=== PATIENT | female | born 2005 | race Hispanic/Latino ===

== ENCOUNTER 2025-01-21 17:49 | Emergency (ER) | payer OTHER, SELFPAY ==
--- OUTSIDE RECORDS SUMMARY | 2025-01-21 17:52 | XMS REPORT | Continuity of Care Document ---
Author Name Unknown Address [address] [place] [address]. [address] [place] [address] Organization [facility] [place] Address [address] [facility]. [address] [place] [address] Care Team Providers Care Shroud Line Tier Name Role Phone MONALISA PAZ Primary Care Physician OTILIA Hicks Attending Clinician Unav ailOTILIA Cornelius Attending Clinician Unav Otilia Padilla MD Attending Clinician + MONALISA PAZ Attending Clinician Unavailable Monalisa Downing Attending Clinician [phone] Payers Payer Name Policy Type Policy Number Effective Date Expirati on Date Source [facility] ([facility]) [id number] 2024 00:00:00 Allergies, Adverse Reactions, Alerts Allergy Name Allergy Type Status Severity Reaction(s) Onset Date Inactive Date Treating Clinician Comments Source NO KNOWN ALLERGIE S Drug Class Active [facility] Social History Social Habit Start Date Stop Date Quantity Comments Source [facility] Alcoholic beverage intake 2024-05-22 00:00:00 2024-05-22 00:00:00 Current drinker of alcohol (finding) [facility] History of Social function 2024-05-22 00:00:00 2024-05-22 00:00:00 [facility] Alcohol Comment 2024-05-22 00:00:00 2024-05-22 00:00:00 every few weeks [facility] Tobacco use and exposure 2024-05-22 00:00:00 2024-05-22 00:00:00 Smokeless tobacco non-user [facility] Sex assigned at 2005 00:00:00 2005 00:00:00 [facility] Smoking Status Start Date Stop Date Source Never smoked tobacco General acute hospital Medications Ordered Medication Name Filled Medication Name Start Date Stop Date Current Medication? Ordering Clinician Indication Dosage Frequency Signature (SIG) Comments Components Source cefTRIAXone (ROCEPHIN) 1,000 mg in water for injection, sterile 10 mL IV Push 11-15 19:45: 00 11-15 19:50 :00 No 1000mg 1,000 mg, Intravenou s, ONCE, 1 dose, On 11/15/24 at 1345, 10 mL, Reason for Anti-Infec tive: Documented Infection, Documented Infection Site: Urine, Duration of Therapy: Once (ED) General acute hospital NaCl 0.9% (NS) bolus infusion 500 mL 11-15 19:45: 00 11-15 20:48 :00 No 500mL at 999 mL/hr, 500 mL, IV Infusion, ONCE, 1 dose, On 11/15/24 at 1345, STAT General acute hospital cefdinir 300 mg capsule 11-15 00:00: 00 11-26 05:59 :00 Yes [id number] 300mg Take 1 capsule by mouth every 12 (twelve) hours for 10 days. General acute hospital loperamide (IMODIUM A-D) 2 mg capsule 11-15 00:00: 00 11-19 05:59 :00 Yes [id number] 2mg Take 1 capsule by mouth every 6 (six) hours as needed for Diarrhea for up to 3 days. General acute hospital Immunizations Ordered Immunization Name Filled Immunization Name Date Status Comments Source Meningococcal Polysaccharide (Groups A, C, Y And W-135 TT) conjugate vaccine 2024-05-22 00:00:00 Completed Meningococcal Polysaccharide (Groups A, C, Y And W-135 TT) conjugate vaccine Unknown Completed [facility] Vital Signs Vital Name Observation Time Observation Value Comments S ource Systolic blood pressure 2024-11-15 18:21:00 126 mm[Hg] [facility] Diastolic blood pressure 2024-11-15 18:21:00 84 mm[Hg] [facility] Heart rate 2024-11-15 18:21:00 84 /min [facility] Body temperature 2024-11-15 18:21:00 37.22 Clarice [facility] Respiratory rate 2024-11-15 18:21:00 16 /min [facility] Body height 2024-11-15 18:21:00 160 cm [facility] Body weight 2024-11-15 18:21:00 46.267 kg [facility] BMI 2024-11-15 18:21:00 18.07 kg/m2 [facility] Oxygen saturation in Arterial blood by Pulse oximetry 2024-11-15 18:21:00 100 /min [facility] Systolic blood pressure 2024-05-22 17:40:00 112 mm[Hg] [facility] Diastolic blood pressure 2024-05-22 17:40:00 66 mm[Hg] [facility] Heart rate 2024-05-22 17:40:00 52 /min [facility] Body temperature 2024-05-22 17:40:00 36.61 Clarice [facility] Body height 2024-05-22 17:40:00 157.5 cm [facility] Body weight 2024-05-22 17:40:00 49.442 kg [facility] BMI 2024-05-22 17:40:00 19.94 kg/m2 [facility] Body mass index (BMI) [Percentile] Per age and sex 2024-05-22 17:40:00 28.88 % [facility] Procedures Procedure Date / Time Performed Performing Clinician Source POCT TEST 2024-11-15 18:52:00 Otilia Kuo [facility] LIPASE 2024-11-15 18:49:00 Otilia Guevara [facility] COMP. METABOLIC PANEL (37590) 2024-11-15 18:49:00 Otilia Guevara [facility] CBC WITH DIFF 2024-11-15 18:49:00 Otilia Guevara [facility] URINALYSIS 2024-11-15 18:49:00 Otilia Guevara [facility] INFLUENZA A/B RSV COVID NAAT 2024-11-15 18:49:00 Otilia Guevara [facility] MENQUADFI MENINGOCOCCAL CONJUGATE VACCINE SEROGROUPS A,C,Y,W 2024-05-22 17:49:40 Monalisa Paz [facility] Encounters Start Date/Time End Date/Time Encounter Type Admission Type Attending [facility] Care Facility Care Department Encounter ID Source 2024-11-15 12:22:00 2024-11-15 14:51:00 Emergency X OTILIA GUEVARA ERIN COHEIDI ERT [id number] General acute hospital 2024-11-15 12:22:00 2024-11-15 14:51:00 Emergency Otilia Guevara [facility] [id number] General acute hospital 2024-05-22 12:30:00 2024-05-22 13:05:24 Outpatient R MONALISA PAZ [facility] [id number] General acute hospital 2024-05-22 12:30:00 2024-05-22 13:05:24 Office Visit Monalisa Paz [facility] [id number] General acute hospital Results Test Description Test Time Test Comments Results Result Co mments Source [facility] 19:24:39* Test Item Value Reference Range Interpretation Comme nts LIPASE (test code = 8230530492) 80 U/L 0-220 Lab Interpretation (test cod e = 61739-0) [id number] 19:03:17* Test Item Value Reference Range Interpretation Comme nts WBC (test code = 6690-2) 8.78 4.30-11.10 RBC (test code = 789-8) 4.38 3.93-5.25 HGB (test code = 718-7) 13.6 g/dL 11.6-15.0 HCT (test code = 4544-3) 38.9 % 35.7-45.2 MCV (test code = 787-2) 88.8 fL 80.6-95.5 MCH (test code = 785-6) 31.1 pg 25.9-32.8 MCHC (test code = 786-4) 35.0 g/dL 31.6-35.1 RDW-SD (test code = 89393-2) 37.0 fL 39.0-49.9 L RDW-CV (test code = 788-0) 11.6 % 12.0-15.5 L PLT (test code = 777-3) 208 166-358 MPV (test code = 63746-9) 12.0 fL 9.5-12.9 NRBC/100 WBC (test code = 3532830728) 0.0 0.0-10.0 NRBC x10^3 (test code = 7684957009) See_Comment [Automated messa ge] The system which generated this result transmitted reference range: 10*3/?L. The reference range was not used to interpret this result as normal/abnormal. GRAN MAT (NEUT) % (test code = 770-8) 69.9 % IMM GRAN % (test code = 8194026756) 0.20 % LYMPH % (test code = 736-9) 16.6 % MONO % (test code = 5905-5) 11.5 % EOS % (test code = 713-8) 1.5 % BASO % (test code = 706-2) 0.3 % GRAN MAT x10^3(ANC) (test code = 9740944949) 6.13 10*3/uL 1.88-7.09 IMM GRAN x10^3 (test code = 4563531305) 0.00-0.06 LYMPH x10^3 (test code = 731-0) 1.46 10*3/uL 1.32-3.29 MONO x10^3 (test code = 742-7) 1.01 10*3/uL 0.33-0.92 H EOS x10^3 (test code = 711-2) 0.13 10*3/uL 0.03-0.39 BASO x10^3 (test code = 704-7) 0.03 10*3/uL 0.01-0.07 Lab Interpretation (test code = 22092-6) Abnormal [id number] 18:52:00* Test Item Value Reference Range Interpretation Comme nts POCT PREG (test code = 1605) Negative On board controls acceptable with C Line (test code = 3574) No POCT PREG LOT # (test code = 3575) [id number] POCT PREG TEST DATE ( test code = 3576) [id number] Lab Interpretation (test cod e = 85136-9) Normal [facility] Notes Date/Time Note Provider Source 2024-11-15 14:50:15 Pt given printed and verbal discharge instructions regarding abdominal pain, acute cystitis with hematuria, diarrhea, encouraged hydration, 2 Prescriptions sent. Discussed antibiotic therapy and to take until all completed unless adverse reaction occurs - if occurs, discontinue medication and follow up with pcp/seek medical attention Pt verbalized understanding of instructions, pt awake alert oriented, resp reg unlabored, skin w/d, color appropriate for race, moves all ext well,pt encouraged to follow up with pcp. Advised to seek medical attention for new/prolonged/worsening of symptoms, Symptoms improved. No adverse reaction to meds given in ER noted upon discharge PIV d'cd, dressing to site, catheter in tact. Awake, alert oriented, resp reg unlabored, skin w/d, pt leaving amb with steady gait, in no apparent distress, N Santacruz RN [facility] 2024-11-15 12:20:32 CC: patient presents to the ER with complaints of diarrhea and foul smelling belches for the past 4 days. Awake, alert, oriented, resp reg unlabored, skin warm and dry, color appropriate for race, moves all ext without difficulty, amb without assistance Appears in no distress. N Zeng RN [facility] - [facility] 2024-11-15 12:06:00 [facility] Emergency Department Note Patient Name: Danitza Sims Date of : 2005 19 year old female Treatment Room: Room/bed info not found Primary Care Physician: Monalisa Paz Patient Escorted by: Family [5] Mode of Arrival: Personal means [1] EMS Treatment Prior to ED Arrival: Travel and Exposure Screening: Symptoms Does patient have any of these symptoms?: (not recorded) Exposure Screening Has patient had contact with someone with a communicable disease in the last month?: (not recorded) Diseases exposed to:: (not recorded) Is Patient ?: (not recorded) Exposure Date: (not recorded) Chief Complaint: Chief Complaint Patient presents with Diarrhea History of Present Illness: HPI Danitza Sims is a 19 year old female presenting with diarrhea for the past 4 days along with malaise. Patient reports very mild abdominal cramping. Patient reports having to used that bathroom about once every hour. Patient denies associated nausea or vomiting. Patient denies fevers, no known sick contacts. No cough, congestion or rhinorrhea. Past Medical History/Immunizations: No past medical history on file. Allergies: No Known Allergies Past Social History: Tobacco Use Never smoked or used smokeless tobacco. Alcohol Use Yes. Comments: every few weeks Drug Use Not Currently; Marijuana. Sexual Activity Not currently sexually active; Control/Protection: Condom. Past Surgical History: No past surgical history on file. Review of Systems: Review of Systems Constitutional: Positive for fatigue. Negative for activity change, appetite change, chills, diaphoresis, fever and unexpected weight change. HENT: Negative for congestion, facial swelling and rhinorrhea. Eyes: Negative for photophobia and visual disturbance. Respiratory: Negative for apnea, cough, choking, chest tightness, shortness of breath, wheezing and stridor. Cardiovascular: Negative for chest pain, palpitations and leg swelling. Gastrointestinal: Positive for diarrhea. Negative for abdominal distention, abdominal pain, anal bleeding, blood in stool, constipation, nausea, rectal pain and vomiting. Genitourinary: Positive for dysuria. Neurological: Positive for light-headedness. Negative for dizziness, tremors, seizures, syncope, facial asymmetry, speech difficulty, weakness, numbness and headaches. Physical Exam: ED Triage Vitals [11/15/24 1221] Weight 46.3 kg (102 lb) Actual or estimated Estimated by patient/family report Height 1.6 m (5' 3") BP 126/84 Pulse 84 Resp 16 Temp 37.2 ?C (99 ?F) Temp source Oral SpO2 100 % Measured on Room air Physical Exam Vitals and nursing note reviewed. Constitutional: General: She is not in acute distress. Appearance: She is well-developed. She is not diaphoretic. HENT: Head: Normocephalic and atraumatic. Eyes: General: No scleral icterus. Right eye: No discharge. Left eye: No discharge. Conjunctiva/sclera: Conjunctivae normal. Cardiovascular: Rate and Rhythm: Normal rate and regular rhythm. Heart sounds: Normal heart sounds. No murmur heard. No friction rub. No gallop. Pulmonary: Effort: Pulmonary effort is normal. No respiratory distress. Breath sounds: Normal breath sounds. No wheezing. Chest: Chest wall: No tenderness. Abdominal: General: There is no distension. Palpations: Abdomen is soft. There is no mass. Tenderness: There is no abdominal tenderness. There is no guarding or rebound. Musculoskeletal: Cervical back: Neck supple. Skin: General: Skin is warm and dry. Neurological: Mental Status: She is alert and oriented to person, place, and time. Cranial Nerves: No cranial nerve deficit. Coordination: Coordination normal. Psychiatric: Behavior: Behavior normal. Radiology: No orders to display Lab Results: Lab Results CBC WITH DIFF - Abnormal Result Value Ref Range WBC 8.78 4.30 - 11.10 10*3/?L RBC 4.38 3.93 - 5.25 10*6/?L HGB 13.6 11.6 - 15.0 g/dL HCT 38.9 35.7 - 45.2 % MCV 88.8 80.6 - 95.5 fL MCH 31.1 25.9 - 32.8 pg MCHC 35.0 31.6 - 35.1 g/dL RDW-SD 37.0 (*) 39.0 - 49.9 fL RDW-CV 11.6 (*) 12.0 - 15.5 % PLT 208 166 - 358 10*3/?L MPV 12.0 9.5 - 12.9 fL NRBC/100 WBC 0.0 0.0 - 10.0 /100 WBCs NRBC x10 3 <0.01 10*3/?L GRAN MAT (NEUT) % 69.9 % IMM GRAN % 0.20 % LYMPH % 16.6 % MONO % 11.5 % EOS % 1.5 % BASO % 0.3 % GRAN MAT x10 3 (ANC) 6.13 1.88 - 7.09 10*3/uL IMM GRAN x10 3 <0.03 0.00 - 0.06 10*3/uL LYMPH x10 3 1.46 1.32 - 3.29 10*3/uL MONO x10 3 1.01 (*) 0.33 - 0.92 10*3/uL EOS x10 3 0.13 0.03 - 0.39 10*3/uL BASO x10 3 0.03 0.01 - 0.07 10*3/uL COMP. METABOLIC PANEL (11283) - Abnormal NA 140 135 - 145 mmol/L K 4.0 3.5 - 5.0 mmol/L CL 107 98 - 108 mmol/L CO2 TOTAL 22 (*) 23 - 31 mmol/L AGAP 11 2 - 16 BUN 16 7 - 23 mg/dL GLUCOSE 99 70 - 110 mg/dL CREATININE 0.76 0.50 - 1.04 mg/dL TOTAL BILI 0.7 0.1 - 1.1 mg/dL CALCIUM 10.0 8.6 - 10.6 mg/dL T PROTEIN 8.6 (*) 6.3 - 8.2 g/dL ALBUMIN 5.2 (*) 3.5 - 5.0 g/dL ALK PHOS 60 34 - 122 U/L ALTv 101 (*) 5 - 35 U/L AST(SGOT) 107 (*) 13 - 40 U/L eGFR 115.9 mL/min/1.73m2 URINALYSIS - Abnormal APPEARANCE Slightly Cloudy (*) Clear COLOR Yellow Yellow PH 5.0 4.8 - 8.0 SP GRAVITY 1.021 1.003 - 1.030 GLU U QUAL Normal Normal BLOOD 1+ (*) Negative KETONES Negative Negative PROTEIN Negative Negative UROBILIN Normal Normal BILIRUBIN Negative Negative NITRITE Negative Negative LEUK MAGALIE 75/uL (*) Negative RBC/HPF 25 (*) 0 - 3 HPF WBC/HPF 22 (*) 0 - 5 HPF BACTERIA Few (*) Negative MUCOUS Moderate (*) Negative LPF SQ EPITH 1 HPF LIPASE - Normal LIPASE 80 0 - 220 U/L POCT TEST - Normal POCT PREG Negative On board controls acceptable with C Line No POCT PREG LOT # [id number] POCT PREG TEST DATE 121,620,252 INFLUENZA A/B RSV COVID NAAT - Normal Influenza A NAAT Negative Negative Influenza B NAAT Negative Negative RSV by PCR Negative Negative SARS-CoV-2 NAAT Negative Negative URINE CULTURE EKG: If EKG completed, see Procedure Note. Orders and Treatments: Orders Placed This Encounter Procedures Cbc with Diff Comp. Metabolic Panel (46885) Lipase Urinalysis POCT TEST Influenza A B RSV COVID NAAT Orders Placed This Encounter Medications NaCl 0.9% (NS) bolus infusion 500 mL cefTRIAXone (ROCEPHIN) 1,000 mg in water for injection, sterile 10 mL IV Push First Provider Eval: ED Events Date/Time Event User Comments 11/15/24 1210 Medical Screening Begins OTILIA GUEVARA MD -- 11/15/24 1210 First Provider Evaluation OTILIA GUEVARA MD -- ED COURSE Diagnosis/Impression as of 11/15/24 1359 Abdominal pain, unspecified abdominal location Acute cystitis with hematuria Diarrhea, unspecified type Procedures: Procedures MDM: Medical Decision Making Danitza Sims is a 19 year old female presenting with diarrhea symptoms as above. Patient's labs reviewed, remarkable for UTI. Patient's viral studies negative of COVID19, influenza A/B, RSV. Patient's CMP, CBC, unremarkable. Patient received IV fluids, ceftriaxone in the ER. Plan for discharge home with antibiotic for UTI and imodium for lose stools. Findings discussed with patient. Plan for discharge home with close PCP follow up. Patient advised to return to the ER for any worsening symptoms despite treatment. Problems Addressed: Abdominal pain, unspecified abdominal location: self-limited or minor problem Acute cystitis with hematuria: acute illness or injury Diarrhea, unspecified type: acute illness or injury Amount and/or Complexity of Data Reviewed Labs: ordered. Risk Prescription drug management. Flowsheet Documentation: Scoring Tools: No data recorded Disposition/Condition: ED Disposition ED Disposition Discharge Condition Stable Comment -- Discharge Medications: Patient's Medications No medications on file Follow-up: Electronically signed by: Otilia Guevara MD 11/15/24 1359 [facility]
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
[2025-01-22] MEDS ORDERED: AZITHROMYCIN 250 MG TAB ONE (00:38)
[2025-01-22] MEDS ORDERED: metroNIDAZOLE 500 MG TABLET ONE (00:39)
[2025-01-22] MEDS ORDERED: ONDANSETRON 4 MG (ODT) TAB ONE (00:39)
[2025-01-22 01:20] VITALS: BP 128/95; TEMP 99.1; O2SAT 100
== END 2025-01-22 01:14 | disposition home or self-care (01) ==
LOC: ER 17:49
DX: T76.21XA Adult sexual abuse, suspected, initial encounter (principal)
CPT/HCPCS: 99283; Q0162